=== PATIENT | male | born 1945 | race Caucasian/White ===

== ENCOUNTER 2016-06-30 07:43 | Day surgery (SDC) | payer MEDICARE, BC ==
[2016-06-30] MEDS ORDERED: MIDAZOLAM HCL 2MG/2ML VIAL IV ONE (14:00)
[2016-06-30] MEDS ORDERED: LIDOCAINE 2% MDV (20MG/ML) 20ML VIAL IV ONE (14:00)
[2016-06-30] MEDS ORDERED: PROPOFOL 10 MG/ML VIAL IV ONE (14:00)
--- NOTE | 2016-07-04 09:43 | Operative Note ---
DATE OF SURGERY: 06/30/2016 REFERRING PROVIDER: Jann Martínez MD, FACP PREOPERATIVE DIAGNOSIS: Family history of rectal cancer in a sister. POSTOPERATIVE DIAGNOSIS: Family history of rectal cancer and mild to moderate sigmoid diverticulosis. OPERATION: SCREENING COLONOSCOPY. PROCEDURE: After informed consent was obtained, the patient was placed in the left lateral decubitus position in the endoscopy suite, sedated and monitored by the Department of Anesthesia. Digital rectal exam was unremarkable. A well-lubricated PCF-180 colonoscope was inserted into the rectum and advanced to the cecum. The preparation quality was good to excellent. The cecum, ascending colon, transverse colon, descending colon, sigmoid colon, and rectum were free of inflammatory changes, mass lesions or polyps. There were mild to moderate sigmoid diverticular changes in the sigmoid colon. The sigmoid colon was otherwise unremarkable as was the rest of the colon. Forward and J-turn views of the rectum and anorectum were unremarkable. The endoscope was straightened, the rectal ampulla deflated and the endoscope was removed. RECOMMENDATIONS: The patient should follow a high-fiber diet. I recommend a repeat exam in 5 years based on his family history. As always, thank you for allowing me to participate in the health care of your patients. CC: JANN MARTÍNEZ MD, FACP [facility]
== END 2016-06-30 09:27 | disposition home or self-care (01) ==
LOC: HOP 07:43
PROVIDERS: ATTEND Internal Medicine Gastroenterology
DX: Z80.0 Family history of malignant neoplasm of digestive organs (principal); I10 Essential (primary) hypertension; E78.00 Pure hypercholesterolemia, unspecified
CPT/HCPCS: 00810; G0105

== ENCOUNTER 2017-08-17 09:17 | Day surgery (SDC) | payer MEDICARE, BC ==
[2017-08-17] MEDS ORDERED: LIDOCAINE 2% MDV (20MG/ML) 20ML VIAL IV ONE (09:18)
[2017-08-17] MEDS ORDERED: PROPOFOL 10 MG/ML VIAL IV ONE (09:18)
--- NOTE | 2017-08-17 17:00 | Operative Note ---
DATE OF SURGERY: 08/17/2017 REFERRING PROVIDER: Jann Martínez MD, FACP PREOPERATIVE DIAGNOSIS: Episodic dysphagia. POSTOPERATIVE DIAGNOSES: 1. Schatzki's ring. 2. Spotty erythematous GE junction consistent with GERD. 3. Small hiatal hernia. OPERATION: ESOPHAGOGASTRODUODENOSCOPY with photo and dilation. PROCEDURE: After informed consent was obtained, the patient was placed in the left lateral decubitus position in the endoscopy suite, sedated and monitored by the Department of Anesthesia. Once sedated, a well-lubricated ZHQ199 gastroscope was placed in the posterior oropharynx and under direct visualization passed to the proximal esophagus. The endoscope was advanced easily to the proximal, mid and distal esophagus. At the GE junction, there was a moderate to large caliber GE junction ring. There was a mild amount of inflammatory changes in a spotty distribution at the GE junction. There was a small hiatal hernia. The subdiaphragmatic stomach, body, antrum, pylorus, duodenal bulb and sweep were all unremarkable. J-turn views of the proximal stomach again revealed some erythema in the area of the cardia near the GE junction as well as a small hiatal hernia. No mass lesions were seen. The endoscope was then straightened and retracted from the patient. At this point, a 52-[place] Moore dilator was passed through the level of the GE junction and removed. There was no resistance with passage of the Moore. The endoscope was reinserted. No tears were noted. RECOMMENDATIONS: Suggest the patient start a low-dose PPI such as pantoprazole 20 mg daily. In addition, should monitor his swallowing issues. I would suggest he rinse with food, as he does have some xerostomia. As always, thank you for allowing me to participate in the health care of your patients. CC: JANN MARTÍNEZ MD, FACP [facility]
== END 2017-08-17 10:41 | disposition home or self-care (01) ==
LOC: HOP 09:17
PROVIDERS: ATTEND Internal Medicine Gastroenterology
DX: R13.19 Other dysphagia (principal); K22.2 Esophageal obstruction; K44.9 Diaphragmatic hernia without obstruction or gangrene; L53.8 Other specified erythematous conditions; I10 Essential (primary) hypertension; E78.00 Pure hypercholesterolemia, unspecified